=== PATIENT | female | born 1950 | race Caucasian/White ===

== ENCOUNTER 2024-05-31 15:45 | Inpatient (IN) | payer MEDICAID, MEDICARE ==
[2024-05-31] MEDS ORDERED: Sodium Chloride 0.9% 10 ML Syringe FLUSH PRN (16:15)
[2024-05-31 16:18] LABS: BASOPHILS PERCENT AUTO 0.2 % (0.2-1.2); EOSINOPHILS ABSOLUTE AUTO 0.7 x10^3/uL (0.0-0.5); EOSINOPHILS PERCENT AUTO 10.6 % (0.0-4.0); HEMATOCRIT 23.5 % (33.0-47.0); HEMOGLOBIN 7.5 g/dL (12.0-16.0); LYMPHOCYTES ABSOLUTE AUTO 0.4 x10^3/uL (1.0-4.8); LYMPHOCYTES PERCENT AUTO 6.5 % (25.0-50.0); MEAN CORPUSCULAR HEMOGLOBIN 29.5 pg (26.0-32.0); MEAN CORPUSCULAR HGB CONC 31.9 g/dL (32.0-36.0); MEAN CORPUSCULAR VOLUME 92.5 fL (78.0-93.0); MONOCYTES ABSOLUTE AUTO 0.4 x10^3/uL (0.0-0.8); NEUTROPHILS ABSOLUTE AUTO 4.6 x10^3/uL (1.8-7.7); NEUTROPHILS PERCENT AUTO 75.1 % (50.0-80.0); PLATELET COUNT,PLT 188 x10^3/uL (130-400); RED BLOOD CELL COUNT 2.54 x10^6/uL (4.00-5.50); WHITE BLOOD CELL COUNT,WBC 6.1 x10^3/uL (4.0-10.0)
[2024-05-31 16:34] LABS: ALANINE AMINOTRANSFERASE,ALT 23 U/L (14-59); ALBUMIN 3.1 g/dL (3.4-5.0); ALKALINE PHOSPHATASE 136 U/L (46-116); ANION GAP 15.2 mmol/L (5-15); ASPARTATE AMNIOTRANSFERASE,AST 11 U/L (15-37); BILIRUBIN TOTAL 0.5 mg/dL (0.2-1.0); BLOOD UREA NITROGEN,BUN 14 mg/dL (7-18); CALCIUM 8.6 mg/dL (8.5-10.1); CARBON DIOXIDE,CO2 27 mmol/L (21-32); CHLORIDE,CL 101 mmol/L (98-107); CREATININE 0.7 mg/dL (0.55-1.02); ESTIMATED GFR 92 mL/min (>=60); GLUCOSE RANDOM 127 mg/dL (70-99); POTASSIUM,K 3.2 mmol/L (3.5-5.1); PROTEIN TOTAL,TP 6.2 g/dL (6.4-8.2); SODIUM,NA 140 mmol/L (136-145)
[2024-05-31 17:07] LABS: APPEARANCE,URINE SLIGHTLY CLOUDY (CLEAR); BILIRUBIN,URINE SMALL (NEGATIVE); COLOR,URINE YELLOW (YELLOW); GLUCOSE,URINE NEGATIVE (NEGATIVE); KETONES,URINE 15 mg/dL (NEGATIVE); LEUKOCYTE ESTERASE,URINE NEGATIVE (NEGATIVE); NITRITE,URINE NEGATIVE (NEGATIVE); OCCULT BLOOD,URINE MODERATE (NEGATIVE); PH,URINE 5.5 (5.0-8.0); PROTEIN,URINE 30 mg/dL (NEGATIVE); UROBILINOGEN,URINE 0.2 EU/dL (0.2)
[2024-05-31 17:14] LABS: BACTERIA,URINE RARE /HPF (NOT SEEN); SQUAMOUS EPITHELIAL CELLS,UR FEW /HPF (NOT SEEN); WBC,URINE 0-5 /HPF (NOT SEEN)
[2024-05-31] MEDS: Ondansetron 4 MG/2 ML SDV IVPUSH ONE (17:37)
[2024-05-31] MEDS: LORazepam 2 MG/ML SDV IVPUSH ONE (18:08)
[2024-05-31] MEDS ORDERED: Naloxone 0.4 MG/ML SDV IVPUSH PRN (21:57)
[2024-05-31] MEDS ORDERED: Polyethylene Glycol 3350 Powder 17 GM Packet PO PRN (21:57)
[2024-05-31] MEDS ORDERED: Docusate Sodium 100 MG Cap PO PRN (21:57)
[2024-05-31] MEDS ORDERED: Albuterol HFA 18 Gm Inhaler INH PRN (22:06)
[2024-05-31] MEDS ORDERED: Clobetasol 0.05% Crm 30 GM Tube TOP PRN (22:52)
[2024-05-31] MEDS: NS with KCl 40mEq 1,000 ML IV SCH (23:17)
[2024-05-31] MEDS: Apixaban 5 MG Tab PO SCH (23:28)
[2024-05-31] MEDS: HYDROmorphone 0.5 MG/0.5 ML Syringe IVPUSH PRN (23:36)
[2024-06-01] MEDS: Magnesium Sulfate/Water Premix 2 GM in Premix Bag 1 BAG IV ONE (00:34)
[2024-06-01] MEDS: Potassium Chloride 20 MEQ Tab.ER PO ONE (00:41)
[2024-06-01] MEDS: Ondansetron 4 MG/2 ML SDV IV PRN (03:48)
[2024-06-01] MEDS: Pantoprazole 40 MG Tab.CR PO SCH (06:07)
[2024-06-01 06:57] LABS: HEMATOCRIT 22.8 % (33.0-47.0); HEMOGLOBIN 7.3 g/dL (12.0-16.0); MEAN CORPUSCULAR HEMOGLOBIN 29.6 pg (26.0-32.0); MEAN CORPUSCULAR VOLUME 92.3 fL (78.0-93.0); PLATELET COUNT,PLT 203 x10^3/uL (130-400); RED BLOOD CELL COUNT 2.47 x10^6/uL (4.00-5.50); WHITE BLOOD CELL COUNT,WBC 6.6 x10^3/uL (4.0-10.0)
[2024-06-01 07:07] LABS: CALCIUM 8.5 mg/dL (8.5-10.1); CREATININE 0.6 mg/dL (0.55-1.02); EST CRCL DRUG DOSING (CG) 76.26 mL/min; POTASSIUM,K 4.3 mmol/L (3.5-5.1)
[2024-06-01 07:08] LABS: ANION GAP 13.3 mmol/L (5-15)
[2024-06-01 07:12] LABS: ANISOCYTOSIS 2+ MODERATE; BAND PERCENT MAN 4 % (0-6); EOSINOPHILS ABSOLUTE MAN 0.1 x10^3/uL (0.0-0.5); EOSINOPHILS PERCENT MAN 2 % (0-4); HYPOCHROMASIA 2+ MODERATE; LYMPHOCYTES ABSOLUTE MAN 0.7 x10^3/uL (1.0-4.8); LYMPHOCYTES PERCENT MAN 11 % (25-50); MONOCYTES ABSOLUTE MAN 0.6 x10^3/uL (0.0-0.8); MONOCYTES PERCENT MAN 9 % (2-11); NEUTROPHILS ABSOLUTE MAN 5.1 x10^3/uL (1.8-7.7); SEG NEUTROPHILS PERCENT MAN 74 % (50-80)
[2024-06-01 07:13] LABS: TEARDROP CELLS 1+ SLIGHT
[2024-06-01 07:14] LABS: PLATELET COUNT ESTIMATE ADEQUATE
[2024-06-01] MEDS: Albuterol/Ipratropium 3.0-0.5 MG/3 ML Neb Soln NEB SCH (08:37)
[2024-06-01] MEDS: Budesonide 0.5 MG/2 ML Neb Susp INH SCH (08:37)
[2024-06-01] MEDS: Aspirin 81 MG Tab.EC PO SCH (09:52)
[2024-06-01] MEDS: Folic Acid 1 MG Tab PO SCH (09:53)
[2024-06-01] MEDS: Rosuvastatin 20 MG Tab PO SCH (09:53)
[2024-06-01] MEDS: Acetaminophen 500 MG Tab PO SCH (09:54)
[2024-06-01] MEDS: Ferrous Sulfate 325 MG Tab PO SCH (09:54)
[2024-06-01] MEDS: Acyclovir 200 MG Cap PO SCH (09:55)
[2024-06-01] MEDS: Polyethylene Glycol 3350 Powder 17 GM Packet PO SCH (09:56)
[2024-06-01] MEDS: oxyCODONE 5 MG Tab PO PRN (10:57)
== END 2024-06-01 14:30 | disposition short-term general hospital (02) | DRG 92 ==
LOC: VM.ED 15:45 → VM.MS 19:46
PROVIDERS: ADMIT Internal Medicine; ATTEND Internal Medicine
DX: R41.0 Disorientation, unspecified (principal); D64.9 Anemia, unspecified; C81.90 Hodgkin lymphoma, unspecified, unspecified site; G92.8 Other toxic encephalopathy; C85.90 Non-Hodgkin lymphoma, unspecified, unspecified site; I69.354 Hemiplegia and hemiparesis following cerebral infarction affecting left non-dominant side; J96.11 Chronic respiratory failure with hypoxia; J30.9 Allergic rhinitis, unspecified; I73.9 Peripheral vascular disease, unspecified; I25.10 Atherosclerotic heart disease of native coronary artery without angina pectoris; J44.9 Chronic obstructive pulmonary disease, unspecified; K21.9 Gastro-esophageal reflux disease without esophagitis; G43.909 Migraine, unspecified, not intractable, without status migrainosus; F41.9 Anxiety disorder, unspecified; F32.A Depression, unspecified; D50.9 Iron deficiency anemia, unspecified; E66.9 Obesity, unspecified; E87.6 Hypokalemia; E83.42 Hypomagnesemia; I69.320 Aphasia following cerebral infarction; Z86.16 Personal history of COVID-19; Z86.711 Personal history of pulmonary embolism; Z79.01 Long term (current) use of anticoagulants; Z88.2 Allergy status to sulfonamides; Z88.8 Allergy status to other drugs, medicaments and biological substances; Z79.1 Long term (current) use of non-steroidal anti-inflammatories (NSAID); Z79.51 Long term (current) use of inhaled steroids; Z79.82 Long term (current) use of aspirin; Z79.891 Long term (current) use of opiate analgesic; Z79.899 Other long term (current) drug therapy; Z86.718 Personal history of other venous thrombosis and embolism; Z99.81 Dependence on supplemental oxygen; Z98.890 Other specified postprocedural states
CPT/HCPCS: 36415; 70450; 71045; 80053; 81001; 82140; 82947; 83735; 85025; 87428; 93010; 96374; 96375; 99284; 99285; C1758; J2060; J2405; 80048; 84484; 87040; 87070; 92610-GN; 93005; 94640; 94760; 99223; 99223-GT; A9270-GY; J3475; J3480; J3490; J7620-GY; Q3014